=== PATIENT | female | born 1995 | race Asian ===

== ENCOUNTER 2016-08-16 15:17 | Emergency (ER) | payer OTHER ==
[2016-08-16 15:30] VITALS: BP 99/68
--- NOTE | 2016-08-16 16:04 | UC ---
Abdominal Pain Female HPI - HPI Summary HPI Summary: SUDDEN ONSET OF RLQ PAIN AND NAUSEA LAST NIGHT. WENT TO [facility] TODAY AND HAD CBC. PT REPORTS NORMAL WBC COUNT. THEY ADVISED HER TO CALL BACK IF PAIN WORSENED WHICH IT DID. THEY ADVISED HER TO COME TO FOR EVAL FOR APPY. - History of Current Complaint Chief Complaint: UCAbdominalPain Stated Complaint: SEVERE ABD PAIN Time Seen by Provider: 08/16/16 15:49 Hx Obtained From: Patient Hx Last Menstrual Period: 08/04/16 Onset/Duration: Sudden Onset, Lasting Hours, Still Present Timing: Constant Severity Initially: Moderate Severity Currently: Moderate Pain Intensity: 8 Pain Scale Used: 0-10 Numeric Location: Discrete At: RLQ Radiates: No Character: Aching Aggravating Factor(s): Movement Alleviating Factor(s): Nothing Associated Signs and Symptoms: Positive: Decreased Appetite, Nausea Allergies/Adverse Reactions: Allergies Allergy/AdvReac Type Severity Reaction Status Date / Time No Known Allergies Allergy Verified 08/16/16 15:30 Home Medications: Home Medications NK [No Home Medications Reported] 08/16/16 [History Confirmed 08/16/16] PMH/Surg Hx/FS Hx/Imm Hx Previously Healthy: Yes - Surgical History Surgical History: None - Family History Known Family History: Positive: Hypertension - Social History Alcohol Use: None Substance Use Type: None Smoking Status (MU): Never Smoked Tobacco Review of Systems Constitutional: Negative Respiratory: Negative Cardiovascular: Negative Gastrointestinal: Abdominal Pain, Other - NAUSEA All Other Systems Reviewed And Are Negative: Yes Physical Exam Triage Information Reviewed: Yes Appearance: Well-Nourished, Pain Distress - MODERATE Vital Signs: Initial Vital Signs Temp 97.8 F 08/16/16 15:27 Pulse 59 08/16/16 15:27 Resp 18 08/16/16 15:27 BP 99/68 08/16/16 15:27 Pulse Ox 100 08/16/16 15:27 Vital Signs Reviewed: Yes Eyes: Positive: Conjunctiva Clear ENT: Positive: Hearing grossly normal Neck: Positive: Supple, Nontender, No Lymphadenopathy Respiratory Exam: Normal Cardiovascular Exam: Normal Abdomen Description: Positive: Soft, Other: - TTP RLQ. POS ROVSING, POS OBTURATOR, POS PSOAS. NO RIGIDITY, NO REBOUND. Negative: CVA Tenderness (R), CVA Tenderness (L), Distended, Guarding Bowel Sounds: Positive: Present Musculoskeletal: Positive: No Edema Neurological: Positive: Alert Psychological: Positive: Age Appropriate Behavior Skin: Negative: rashes Abd Pain Female Course/Dx - Differential Dx/Diagnosis Provider Diagnoses: RLQ PAIN - Physician Notification/Consults Discussed Patient Care With: DR. PONCE Time Discussed With Above Provider: 16:06 - TO [facility] Discharge - Discharge Plan Condition: Stable Disposition: AGAINST MEDICAL ADVICE Referrals: [facility] [Primary Care Provider] -
== END 2016-08-16 16:00 | disposition left against medical advice (07) ==
LOC: UCEAST 15:17
DX: R10.31 Right lower quadrant pain (principal)
CPT/HCPCS: 99202; G0463

== ENCOUNTER 2016-08-16 16:18 | Observation (INO) | payer OTHER ==
[2016-08-16] MEDS ORDERED: NS 0.9% 1000 ML* 1,000 ML IV ONE (18:34)
[2016-08-16] MEDS ORDERED: Ketorolac INJ* 30 MG/ML 1 ML VIAL IV ONE (18:34)
[2016-08-16 18:42] LABS: Hematocrit 41 % (35-47); Hemoglobin 13.5 g/dl (12.0-16.0); Mean Corpuscular HGB Conc 33 g/dl (31-36); Mean Corpuscular Hemoglobin 29 pg (27-31); Mean Corpuscular Volume 88 fL (80-97); Mean Platelet Volume 10 um3 (7.4-10.4); Red Blood Count 4.61 10^6/ul (4.0-5.4); Red Cell Distribution Width 13 % (10.5-15); White Blood Count 11.9 10^3/ul (3.5-10.8)
[2016-08-16 18:51] LABS: ALT 23 U/L (7-52); AST 16 U/L (13-39); Albumin 4.7 g/dL (3.2-5.2); Alkaline Phosphatase 59 U/L (34-104); Anion Gap 8 mmol/L (2-11); BUN/Creatinine Ratio 21.4 (8-20); Blood Urea Nitrogen 15 mg/dL (6-24); C Reactive Protein < 1.00 mg/L (< 5.00); CO2 Carbon Dioxide 28 mmol/L (22-32); Calcium 9.8 mg/dL (8.6-10.3); Chloride 101 mmol/L (101-111); EGFR African American 137.2 (>60); EGFR Non-African American 106.7 (>60); Globulin 3.4 g/dL (2-4); Glucose 119 mg/dL (70-100); Lipase 16 U/L (11.0-82.0); Potassium 3.6 mmol/L (3.5-5.0); Sodium 137 mmol/L (133-145); Total Protein 8.1 g/dL (6.4-8.9)
[2016-08-16 19:30] LABS: Urine Bacteria 1+ (Absent); Urine Bilirubin Negative (Negative); Urine Glucose Negative (Negative); Urine Nitrite Negative (Negative)
--- NOTE | 2016-08-16 20:12 | RAD ---
INDICATION: Right lower quadrant pain. COMPARISON: There are no prior studies available for comparison. TECHNIQUE: Multiple real-time images of the right lower quadrant were obtained using a graded compression technique. FINDINGS: There is a blind-ending fluid filled noncompressible structure with internal debris measuring up to 1.4 cm in diameter. This appears to arise from the base of the cecum. There is a focal 0.9 cm calcification in that region most consistent with an appendicolith. These findings would be most consistent with acute appendicitis. There is a small amount of adjacent free intraperitoneal fluid. No focal fluid collection or abscess is seen. IMPRESSION: FINDINGS MOST CONSISTENT WITH ACUTE APPENDICITIS.
[2016-08-16] MEDS ORDERED: ceFOXitin 2 GM IVPREMIX* 2 GM/50 ML BAG IVPB ONE (20:32)
[2016-08-16] MEDS ORDERED: KETAMINE HCL* 50 MG/ML 10 ML VIAL ONE (20:45)
[2016-08-16] MEDS ORDERED: Cisatracurium* 2 MG/ML MDV 5 ML ONE (20:45)
[2016-08-16] MEDS ORDERED: Dexamethasone IV* 4 MG/ML 1 ML (4 MG) ONE (20:45)
[2016-08-16] MEDS ORDERED: Lidocaine 2% PF * 5 ML VIAL ONE (20:45)
[2016-08-16] MEDS ORDERED: Propofol* 10 MG/ML 20 ML BTL IV PUSH ONE (20:45)
[2016-08-16] MEDS ORDERED: fentaNYL* 50 MCG/ML 2 ML VIAL (100 MCG VIAL) ONE (20:45)
[2016-08-16] MEDS ORDERED: Midazolam* 1 MG/ML 5 ML VIAL (5 MG) ONE (20:45)
[2016-08-16] MEDS ORDERED: Ondansetron INJ* 2 MG/ML VIAL ONE (20:45)
[2016-08-16] MEDS ORDERED: Bupivacaine 0.5% W/EPI SDV* 30 ML VIAL ONE (20:50)
[2016-08-16] MEDS ORDERED: Neostigmine Methylsulfate* 2 MG/2 ML SYRINGE ONE (21:57)
[2016-08-16] MEDS ORDERED: Glycopyrrolate IV* 0.2 MG/ML 1 ML VIAL ONE (21:57)
--- NOTE | 2016-08-16 22:02 | ED ---
Audrey Barlow Matthew, scribed for Angel Sorensen MD on 08/16/16 at 1742 . Abdominal Pain/Female - HPI Summary HPI Summary: A 21 y/o female presents to the ED with abdominal pain since 21:00 last night. The pain started in the epigastrium and moved to the RLQ. She was unable to sleep from the pain last night. She was able to eat breakfast this morning ( Yogurt, Banana at 09:00 this morning), but she was unable to eat lunch because of the nausea. Associated symptoms include chills and nausea. The patient denies vomiting and diarrhea. LNMP - August 04. - History of Current Complaint Chief Complaint: EDAbdPain Stated Complaint: ABD PAIN Time Seen by Provider: 08/16/16 17:25 Hx Obtained From: Patient Hx Last Menstrual Period: 08/04/16 ?: No Onset/Duration: Sudden Onset, Lasting Days, Still Present Timing: Constant Severity Initially: Moderate Severity Currently: Moderate Pain Intensity: 8 Pain Scale Used: 0-10 Numeric Location: Discrete At: RLQ Radiates: No Associated Signs and Symptoms: Positive: Nausea, Other: - Chills. Negative: Vomiting, Diarrhea Allergies/Adverse Reactions: Allergies Allergy/AdvReac Type Severity Reaction Status Date / Time No Known Allergies Allergy Verified 08/16/16 15:30 PMH/Surg Hx/FS Hx/Imm Hx Previously Healthy: Yes Endocrine/Hematology History: Denies: Hx Diabetes Infectious Disease History: Denies: Traveled Outside the [place] in Last 30 Days - Family History Known Family History: Positive: Hypertension - Social History Alcohol Use: None Substance Use Type: Reports: None Smoking Status (MU): Never Smoked Tobacco Review of Systems Positive: Chills Eyes: Negative ENT: Negative Cardiovascular: Negative Respiratory: Negative Positive: Abdominal Pain - RLQ, Nausea. Negative: Vomiting Genitourinary: Negative Musculoskeletal: Negative Skin: Negative Neurological: Negative Psychological: Normal All Other Systems Reviewed And Are Negative: Yes Physical Exam Triage Information Reviewed: Yes Vital Signs On Initial Exam: Initial Vitals Temp Pulse Resp BP Pulse Ox 98.2 F 49 20 108/57 99 08/16/16 16:21 08/16/16 16:21 08/16/16 16:21 08/16/16 16:21 08/16/16 16:21 Vital Signs Reviewed: Yes Appearance: Positive: Pain Distress - mild to moderate Skin: Positive: Warm, Skin Color Reflects Adequate Perfusion, Dry Head/Face: Positive: Normal Head/Face Inspection Eyes: Positive: Normal ENT: Positive: Normal ENT inspection Neck: Positive: Supple, Nontender Respiratory/Lung Sounds: Positive: Clear to Auscultation, Breath Sounds Present Cardiovascular: Positive: RRR Abdomen Description: Positive: Soft, Other: - RLQ tenderness; no rebound, positive rovsing sign; positive obturator sign. Negative: Guarding Bowel Sounds: Positive: Present Musculoskeletal: Positive: Normal, Strength/ROM Intact Neurological: Positive: Normal, Sensory/Motor Intact, Alert, Oriented to Person Place, Time Psychiatric: Positive: Affect/Mood Appropriate Diagnostics - Vital Signs Vital Signs Temp Pulse Resp BP Pulse Ox 08/16/16 16:21 98.2 F 49 20 108/57 99 - Laboratory Lab Results: Lab Results 08/16/16 08/16/16 08/16/16 Range/Units 17:40 17:40 17:40 WBC 11.9 H (3.5-10.8) 10^3/ul RBC 4.61 (4.0-5.4) 10^6/ul Hgb 13.5 (12.0-16.0) g/dl Hct 41 (35-47) % MCV 88 (80-97) fL MCH 29 (27-31) pg MCHC 33 (31-36) g/dl RDW 13 (10.5-15) % Plt Count 197 (150-450) 10^3/ul MPV 10 (7.4-10.4) um3 Neut % (Auto) 91.9 H (38-83) % Lymph % (Auto) 5.1 L (25-47) % [place] % (Auto) 2.8 (1-9) % Eos % (Auto) 0 (0-6) % Baso % (Auto) 0.2 (0-2) % Absolute Neuts (auto) 10.9 H (1.5-7.7) 10^3/ul Absolute Lymphs (auto) 0.6 L (1.0-4.8) 10^3/ul Absolute Monos (auto) 0.3 (0-0.8) 10^3/ul Absolute Eos (auto) 0 (0-0.6) 10^3/ul Absolute Basos (auto) 0 (0-0.2) 10^3/ul Absolute Nucleated RBC 0 10^3/ul Nucleated RBC % 0 Sodium 137 (133-145) mmol/L Potassium 3.6 (3.5-5.0) mmol/L Chloride 101 (101-111) mmol/L Carbon Dioxide 28 (22-32) mmol/L Anion Gap 8 (2-11) mmol/L BUN 15 (6-24) mg/dL Creatinine 0.70 (0.51-0.95) mg/dL Est GFR ( Amer) 137.2 (>60) Est GFR (Non-Af Amer) 106.7 (>60) BUN/Creatinine Ratio 21.4 H (8-20) Glucose 119 H (70-100) mg/dL Lactic Acid 1.0 (0.5-2.0) mmol/L Calcium 9.8 (8.6-10.3) mg/dL Total Bilirubin 0.50 (0.2-1.0) mg/dL AST 16 (13-39) U/L ALT 23 (7-52) U/L Alkaline Phosphatase 59 (34-104) U/L C-Reactive Protein < 1.00 (< 5.00) mg/L Total Protein 8.1 (6.4-8.9) g/dL Albumin 4.7 (3.2-5.2) g/dL Globulin 3.4 (2-4) g/dL Albumin/Globulin Ratio 1.4 (1-3) Lipase 16 (11.0-82.0) U/L Beta HCG, Quant < 0.60 mIU/mL Urine Color Urine Appearance Urine pH (5-9) Ur Specific [place] (1.010-1.030) Urine Protein (Negative) Urine Ketones (Negative) Urine Blood (Negative) Urine Nitrate (Negative) Urine Bilirubin (Negative) Urine Urobilinogen (Negative) Ur Leukocyte Esterase (Negative) Urine WBC (Auto) (Absent) Urine RBC (Auto) (Absent) Ur Squamous Epith Cells (Absent) Urine Bacteria (Absent) Urine Glucose (Negative) 08/16/16 Range/Units 17:47 WBC (3.5-10.8) 10^3/ul RBC (4.0-5.4) 10^6/ul Hgb (12.0-16.0) g/dl Hct (35-47) % MCV (80-97) fL MCH (27-31) pg MCHC (31-36) g/dl RDW (10.5-15) % Plt Count (150-450) 10^3/ul MPV (7.4-10.4) um3 Neut % (Auto) (38-83) % Lymph % (Auto) (25-47) % [place] % (Auto) (1-9) % Eos % (Auto) (0-6) % Baso % (Auto) (0-2) % Absolute Neuts (auto) (1.5-7.7) 10^3/ul Absolute Lymphs (auto) (1.0-4.8) 10^3/ul Absolute Monos (auto) (0-0.8) 10^3/ul Absolute Eos (auto) (0-0.6) 10^3/ul Absolute Basos (auto) (0-0.2) 10^3/ul Absolute Nucleated RBC 10^3/ul Nucleated RBC % Sodium (133-145) mmol/L Potassium (3.5-5.0) mmol/L Chloride (101-111) mmol/L Carbon Dioxide (22-32) mmol/L Anion Gap (2-11) mmol/L BUN (6-24) mg/dL Creatinine (0.51-0.95) mg/dL Est GFR ( Amer) (>60) Est GFR (Non-Af Amer) (>60) BUN/Creatinine Ratio (8-20) Glucose (70-100) mg/dL Lactic Acid (0.5-2.0) mmol/L Calcium (8.6-10.3) mg/dL Total Bilirubin (0.2-1.0) mg/dL AST (13-39) U/L ALT (7-52) U/L Alkaline Phosphatase (34-104) U/L C-Reactive Protein (< 5.00) mg/L Total Protein (6.4-8.9) g/dL Albumin (3.2-5.2) g/dL Globulin (2-4) g/dL Albumin/Globulin Ratio (1-3) Lipase (11.0-82.0) U/L Beta HCG, Quant mIU/mL Urine Color Yellow Urine Appearance Cloudy Urine pH 9.0 (5-9) Ur Specific [place] 1.021 (1.010-1.030) Urine Protein 2+(100 mg/dl) H (Negative) Urine Ketones 1+ H (Negative) Urine Blood Negative (Negative) Urine Nitrate Negative (Negative) Urine Bilirubin Negative (Negative) Urine Urobilinogen Negative (Negative) Ur Leukocyte Esterase Negative (Negative) Urine WBC (Auto) Absent (Absent) Urine RBC (Auto) Absent (Absent) Ur Squamous Epith Cells Present H (Absent) Urine Bacteria 1+ H (Absent) Urine Glucose Negative (Negative) Result Diagrams: 08/16/16 17:40 08/16/16 17:40 Lab Statement: Any lab studies that have been ordered have been reviewed, and results considered in the medical decision making process. - Ultrasound No standard instances Ultrasound Interpretation: Positive (See Comments) - IMPRESSION: FINDINGS MOST CONSISTENT WITH ACUTE APPENDICITIS. Ultrasound Interpretation Completed By: Radiologist Abdominal Pain Fem Course/Dx - Course Course Of Treatment: Ms. Hunt presented with a fairly classic abdominal pain stlry with migration and anorexia. Her WBC's were slightly elevated and U/S was read as acute appendicitis. - Diagnoses Provider Diagnoses: Appendicitis - Provider Notifications Discussed Care Of Patient With: Dr. Andre (Surgery) at 20:08 -- Notified of patient's history and will see the patient. Discharge - Discharge Plan Condition: Stable Disposition: [facility]ITT[facility] TO [facility] The documentation as recorded by the Audrey warner Matthew accurately reflects the service I personally performed and the decisions made by me, Angel Sorensen MD.
[2016-08-16] MEDS ORDERED: oxyCODONE/Acetamin 5/325 MG* TAB PO PRN ×2 (22:20→22:24)
[2016-08-16] MEDS ORDERED: Acetaminophen TAB* 325 MG PO PRN (22:20)
[2016-08-16] MEDS ORDERED: HYDROmorphone* 1 MG/ML 1 ML SYR IV PRN (22:20)
[2016-08-16] MEDS ORDERED: Ondansetron INJ* 2 MG/ML VIAL IV PRN ×2 (22:20→22:24)
[2016-08-16] MEDS ORDERED: fentaNYL* 50 MCG/ML 2 ML VIAL (100 MCG VIAL) IV PRN (22:24)
--- NOTE | 2016-08-16 22:27 | SURGPN ---
Brief Operative Note - Surgery Procedures: PREOP/POSTOP DX: ACUTE APPENDICITIS PROC: LAPAROSCOPIC APPENDECTOMY SURG: MECENAS ASSIST: NONE ANES: GET/TOAL EBL: MIN IVF: 1.3 L LR SPEC: APPENDIX DRAIN: NONE COMPL: NONE COND: STABLE; TO RR EXTUBATED.
[2016-08-17] MEDS ORDERED: Ibuprofen TAB* 600 MG ONE (00:02)
[2016-08-17] MEDS: Ibuprofen TAB* 600 MG PO PRN ×2 (00:03→09:29)
--- NOTE | 2016-08-17 00:11 | HP ---
HISTORY AND PHYSICAL: DATE OF ADMISSION: 08/16/16 CHIEF COMPLAINT: Right lower quadrant abdominal pain. HISTORY OF PRESENT ILLNESS: This is a 21-year-old female who presented to the [facility] emergency room this evening because of stomachache that began about 9 p.m. on 08/15/16. The patient reports she slept poorly last night. She awoke with poor appetite, but did eat breakfast. She experienced some nausea, did not vomit. She experienced some chills, but no fever. She had no dysuria, no hematuria, and no diarrhea, but reports feeling somewhat constipated. As the patient's pain progressed, she noted that it was painful to walk upright. She came to the emergency room at [facility] and was evaluated. Evaluation included ultrasound of the right lower quadrant, which revealed her to have a dilated tubular structure consistent with appendicitis. Based on these findings, a Surgical consultation was recommended. The patient has had no similar reports of pain in the past. She has had no recent travel. No sick contacts. PAST MEDICAL HISTORY: None. PAST SURGICAL HISTORY: None. MEDICATIONS: None. ALLERGIES: None. FAMILY HISTORY: Father has hypertension. Mother alive and well. SOCIAL HISTORY: She is a student at [employer], studying [email or web address]. She does not smoke, drink alcohol, or use drugs. REVIEW OF SYSTEMS: A 14-point review of systems was completed and significant for the abovementioned issues, otherwise was negative. PHYSICAL EXAMINATION VITAL SIGNS: Temperature of 98.2, blood pressure of 111/61, pulse 65, respirations 20, and O2 sat 99% on room air. HEENT: Head is normocephalic and atraumatic. Sclerae are anicteric. Her mucous membranes are moist. No otorrhea. No rhinorrhea. Oropharynx is clear. Dentition is intact. NECK: Supple with midline trachea. No palpable lymphadenopathy. LUNGS: Clear to auscultation bilaterally without wheezes, rales, or rhonchi. HEART: Regular S1 and S2. No murmurs, rubs, or gallops are appreciated. ABDOMEN: No scar. Soft with bowel sounds present. Mild distention with tympani. There is tenderness in the right lower quadrant with positive Rovsing' s sign. There is no costovertebral angle tenderness. EXTREMITIES: Warm without cyanosis, clubbing, or edema. DIAGNOSTIC STUDIES/LAB DATA: WBC is 11.9. Chemistries normal including C- reactive protein and lipase. Beta hCG was negative. Glucose was elevated at 119. Urinalysis notable for yellow cloudy urine, 2+ protein, and 1+ ketones. Squamous cells present, 1+ bacteria. Ultrasound; findings as above with 1.4 cm blind-ending fluid-filled noncompressible structure. The images were reviewed personally by me. IMPRESSION: A 21-year-old female with acute appendicitis. PLAN/RECOMMENDATIONS: Laparoscopic appendectomy. The nature of the procedure, the indications, risks, benefits, and alternatives were discussed with the patient and her parents who accompanied her. The risks were explained including , not limited to bleeding, infection, pain, scarring, nausea, vomiting, blood clots, pneumonia, reactions to medications, visceral injury, need for open procedure, and the risks of general anesthesia. The patient and the family's questions were all answered. The patient agrees to proceed. CC: [facility]* [id number]/[facility] #: [id number] MTDD
--- NOTE | 2016-08-17 02:56 | OP ---
DATE OF OPERATION: 08/16/16 - ROOM #340 DATE OF : [birth year] SURGEON: Frederick Andre MD SUPERVISOR COMPOSING ROOM: None. ANESTHESIOLOGIST: Dr. Yunior Mazariegos. ANESTHESIA: General endotracheal. PRE-OP DIAGNOSIS: Acute appendicitis. POST-OP DIAGNOSIS: Acute appendicitis. OPERATIVE PROCEDURE: Laparoscopic appendectomy. ESTIMATED BLOOD LOSS: Minimal. IV FLUIDS: 1.3 L crystalloids. SPECIMEN: Appendix. DRAINS: None. COMPLICATIONS: None. COUNTS: Instrument, needle, and sponge counts correct. DESCRIPTION OF PROCEDURE: The patient was brought to the operating room, placed on the table supine. Sequential compression devices were placed on both lower extremities. General anesthesia was administered. The patient's abdomen was prepped and draped in the usual sterile fashion. She received appropriate antibiotics. Time-out was performed. Local anesthetic was infiltrated into the skin and soft tissue prior to making each incision. Entry to the abdomen was through a transumbilical incision using an open technique. After accessing the peritoneal cavity, a 12-mm trocar was placed and carbon dioxide was insufflated to a pressure of 15 mmHg. Under direct visualization, 5-mm trocars were placed in the suprapubic midline and left lower quadrant. Inspection of the right lower quadrant revealed a dilated appendix with early suppurative changes. It was quite long and upon itself. There were adhesions at the base of the appendix to the lateral side wall, which were taken down sharply. The appendix base was elevated. Window created in the mesentery and then the appendix divided with Endo SARAH stapler with a weber cartridge. Appendix mesentery was taken with the Endo SARAH stapler with a copeland cartridge. The appendix was placed to a retrieval bag, retrieved through the umbilical site. Staple lines were inspected and noted to be hemostatic. Inspection of the pelvis revealed some free fluid, normal-appearing right and left tubes and ovaries. At this point, the ports were removed under direct visualization and carbon dioxide was released. The umbilical wound was closed with 0 Polysorb in a figure-of-8 fashion to approximate the fascia. Skin was closed with 4-0 Monocryl in a subcuticular fashion. Steri-Strips were applied. The patient tolerated the procedure well. She was extubated and transferred to Recovery in stable condition. CC: [facility] * [id number]/[facility] #: [id number] [facility]
--- NOTE | 2016-08-17 09:32 | DCNOTE ---
Feeling better. No N/V. Only needed tyleno/ibuprofen for pain. Vital Signs Temp 98.3 F 08/17/16 07:40 Pulse 47 08/17/16 07:40 Resp 18 08/17/16 08:00 BP 100/58 08/17/16 07:40 Pulse Ox 100 08/17/16 07:40 Intake & Output 08/16/16 08/17/16 08/17/16 18:59 06:59 18:59 Intake Total 2400 Output Total 650 Balance 1750 Weight 116 lb 116 lb Intake: IV Fluids 2300 LR 1300 Oral 100 Output: Urine 650 NAD Abd: incis c/d/i; soft; min tender. A/P: Doing well s/p lap appy. Home today. Rx for Percocet in case needed, otherwise instructed to take ibuprofen. RTO 1-2 weeks. Activity instructions reviewed.
[2016-08-17 13:17] VITALS: BP 98/50
== END 2016-08-17 13:30 | disposition home or self-care (01) ==
LOC: ED 16:18 → OR 20:56 → SSU 23:30
PROVIDERS: ADMIT Surgery; ATTEND Surgery
PROC: 0DTJ4ZZ Resection of Appendix, Percutaneous Endoscopic Approach (ICD-10-PCS; principal; 2016-08-16 20:30)
DX: K35.80 Unspecified acute appendicitis (principal)
CPT/HCPCS: 36415; 76705; 80053; 81003; 81015; 83605; 83690; 84702; 85025; 86140; 87086; 88304; 96374; 99284; A9270-GY; C1776; G0378; J0694; J1100; J1885; J2250; J2405; J2704; J3010